=== PATIENT | male | born 1950 | race African-American/Black ===

== ENCOUNTER 2017-04-08 11:30 | Emergency (ER) | payer MEDICARE, MEDICAID ==
[~2017-04-08] VITALS: Ht 182.9 cm; Wt 75.0 kg
[~2017-04-08 11:30] MED LIST: ABAC1TAB14 PO; ABIL10 PO; ALEN70TA46 PO; CALC-816 PO; CYAN100053 IM; HYDR25TA PO; LORA10TA7 PO; METF10002 PO; MULT-1146 PO; QUIN40TA14 PO; SERT-112 PO; TAMS-11 PO; TRAM50TA3 PO
[2017-04-08 11:35] VITALS: BP 198/98
== END 2017-04-08 15:00 | disposition home or self-care (01) ==
LOC: ER 11:30
DX: M54.2 Cervicalgia (principal); M54.5 Low back pain; M79.604 Pain in right leg; J45.909 Unspecified asthma, uncomplicated; E11.9 Type 2 diabetes mellitus without complications; F17.200 Nicotine dependence, unspecified, uncomplicated; I10 Essential (primary) hypertension; F12.10 Cannabis abuse, uncomplicated; V79.9XXA Bus occupant (driver) (passenger) injured in unspecified traffic accident, initial encounter; Y93.89 Activity, other specified; Y99.8 Other external cause status; Y92.410 Unspecified street and highway as the place of occurrence of the external cause; Z88.0 Allergy status to penicillin
CPT/HCPCS: 99283

== ENCOUNTER 2018-09-24 18:15 | Emergency (ER) | payer MEDICARE, MEDICAID ==
[~2018-09-24] VITALS: Ht 185.4 cm; Wt 81.5 kg
[~2018-09-24 18:15] MED LIST changes: -ALEN70TA46 PO; +ALEN70TA68 PO; +CALC-38 PO; -CALC-816 PO; +METF-416 PO; -METF10002 PO
[2018-09-24] MEDS ORDERED: SODIUM CHLORIDE 0.9% 1,000 ML IV ONE (18:35)
[2018-09-24] MEDS ORDERED: FAMOTIDINE 20MG/2ML VIAL IV ONE (18:45)
[2018-09-24] MEDS ORDERED: METHYLPREDNISOLONE SOD SUCC 125 MG/2 ML VIAL IV ONE (18:45)
[2018-09-24] MEDS ORDERED: DIPHENHYDRAMINE 50MG/ML VIAL IV ONE (18:45)
[2018-09-24 18:54] LABS: EOSINOPHILS % 4.4 % (0.0-5.0); HEMATOCRIT. 40.6 % (42.0-52.0); HEMOGLOBIN. 14.2 g/dL (14.0-18.0); LYMPHOCYTES % 27.6 % (20.0-50.0); MEAN CORPUSCULAR HEMOGLOBIN 34.4 pg (28.0-32.0); MEAN CORPUSCULAR VOLUME 98.8 fL (80.0-94.0); MEAN PLATELET VOLUME 9.4 fl (7.4-10.4); MONOCYTES % 8.3 % (2.0-8.0); NEUTROPHILS % 58.7 % (40.0-76.0); PLATELET 153 x1000/uL (130-400); RED BLOOD CELL COUNT 4.11 mill/uL (4.7-6.1)
[2018-09-24 18:58] LABS: CHLORIDE 113 mEq/L (98-107)
[2018-09-24 19:00] LABS: INR 1.1; PROTHROMBIN TIME 10.9 sec (9.6-11.0)
[2018-09-24 21:35] VITALS: BP 169/93
== END 2018-09-24 21:38 | disposition home or self-care (01) ==
LOC: ER 18:15
DX: T78.2XXA Anaphylactic shock, unspecified, initial encounter (principal); E11.9 Type 2 diabetes mellitus without complications; I10 Essential (primary) hypertension; J45.909 Unspecified asthma, uncomplicated; Z79.899 Other long term (current) drug therapy; Z88.0 Allergy status to penicillin; Z90.49 Acquired absence of other specified parts of digestive tract; Z79.84 Long term (current) use of oral hypoglycemic drugs
CPT/HCPCS: 36415; 71045; 80053; 85025; 85610; 96374; 96375; 99284; J1200; J2930; J3490; J7030

== ENCOUNTER 2019-01-16 15:03 | Emergency (ER) | payer MEDICARE, MEDICAID ==
[~2019-01-16] VITALS: Ht 177.8 cm; Wt 80.0 kg
[2019-01-16] MEDS ORDERED: KETOROLAC 30MG/ML VIAL IV ONE (16:45)
[2019-01-16] MEDS ORDERED: MORPHINE SULFATE 4 MG/ML CPJ (NOT FOR IM USE) IV ONE (16:45)
[2019-01-16 17:03] LABS: BASOPHILS % 0.6 % (0.0-2.0); EOSINOPHILS % 0.5 % (0.0-5.0); HEMATOCRIT. 37.7 % (42.0-52.0); HEMOGLOBIN. 13.1 g/dL (14.0-18.0); LYMPHOCYTES % 12.6 % (20.0-50.0); MEAN CORPUSCULAR HEMOGLOBIN 34.1 pg (28.0-32.0); MEAN CORPUSCULAR VOLUME 98.5 fL (80.0-94.0); MEAN PLATELET VOLUME 9.2 fl (7.4-10.4); MONOCYTES % 7.2 % (2.0-8.0); NEUTROPHILS % 79.1 % (40.0-76.0); PLATELET 169 x1000/uL (130-400); RED BLOOD CELL COUNT 3.83 mill/uL (4.7-6.1); RED CELL DISTRIBUTION WIDTH 15.5 % (11.6-14.6)
[2019-01-16 17:07] VITALS: BP 139/113
== END 2019-01-16 18:42 | disposition home or self-care (01) ==
LOC: ER 15:03
DX: R07.81 Pleurodynia (principal); M25.562 Pain in left knee; M79.644 Pain in right finger(s); R05 Cough; F12.10 Cannabis abuse, uncomplicated; J45.909 Unspecified asthma, uncomplicated; E11.9 Type 2 diabetes mellitus without complications; I10 Essential (primary) hypertension; Z90.49 Acquired absence of other specified parts of digestive tract; Z88.0 Allergy status to penicillin; W18.31XA Fall on same level due to stepping on an object, initial encounter; Y93.89 Activity, other specified; Y92.89 Other specified places as the place of occurrence of the external cause; Y99.8 Other external cause status
CPT/HCPCS: 36415; 71045; 71100; 85025; 93005; 96374; 96375; 99284; J1885; J2270

== ENCOUNTER 2019-10-04 13:25 | Emergency (ER) | payer MEDICARE, MEDICAID ==
[~2019-10-04] VITALS: Ht 182.9 cm; Wt 77.0 kg
[2019-10-04] MEDS ORDERED: IBUPROFEN 600MG TABLET PO ONE (14:45)
[2019-10-04 17:14] VITALS: BP 159/97
== END 2019-10-04 17:15 | disposition home or self-care (01) ==
LOC: ER 13:25
DX: R07.89 Other chest pain (principal); J45.909 Unspecified asthma, uncomplicated; E11.9 Type 2 diabetes mellitus without complications; I10 Essential (primary) hypertension; F12.10 Cannabis abuse, uncomplicated; Z90.49 Acquired absence of other specified parts of digestive tract; Z88.0 Allergy status to penicillin; Z79.899 Other long term (current) drug therapy
CPT/HCPCS: 71045; 71110; 93005; 99284

== ENCOUNTER 2020-01-03 13:15 | Emergency (ER) | payer MEDICARE, MEDICAID ==
[~2020-01-03] VITALS: Ht 185.4 cm; Wt 81.6 kg
[2020-01-03 13:22] VITALS: BP 195/95
== END 2020-01-03 14:37 | disposition home or self-care (01) ==
LOC: ER 13:26
DX: H00.015 Hordeolum externum left lower eyelid (principal); R21 Rash and other nonspecific skin eruption; I10 Essential (primary) hypertension; B20 Human immunodeficiency virus [HIV] disease; J45.909 Unspecified asthma, uncomplicated; E11.9 Type 2 diabetes mellitus without complications; F12.10 Cannabis abuse, uncomplicated; Z90.49 Acquired absence of other specified parts of digestive tract; Z79.899 Other long term (current) drug therapy; Z88.0 Allergy status to penicillin
CPT/HCPCS: 99281; 99282

== ENCOUNTER 2020-04-14 12:31 | Emergency (ER) | payer OTHER, MEDICAID ==
[~2020-04-14] VITALS: Ht 185.4 cm; Wt 79.3 kg
[2020-04-14] MEDS ORDERED: HYDROCODONE/ACETAMINOPHEN 5/325MG TABLET PO ONE (14:45)
[2020-04-14 14:49] LABS: BASOPHILS % 0.8 % (0.0-2.0); EOSINOPHILS % 2.4 % (0.0-5.0); HEMATOCRIT. 35.5 % (42.0-52.0); HEMOGLOBIN. 11.9 g/dL (14.0-18.0); LYMPHOCYTES % 20.3 % (20.0-50.0); MEAN CORPUSCULAR HEMOGLOBIN 33.6 pg (28.0-32.0); MEAN CORPUSCULAR VOLUME 100.3 fL (80.0-94.0); MEAN PLATELET VOLUME 9.6 fl (7.4-10.4); MONOCYTES % 7.1 % (2.0-8.0); NEUTROPHILS % 69.4 % (40.0-76.0); PLATELET 168 x1000/uL (130-400); RED BLOOD CELL COUNT 3.54 mill/uL (4.7-6.1); RED CELL DISTRIBUTION WIDTH 14.4 % (11.6-14.6)
[2020-04-14 14:55] LABS: CHLORIDE 111 mEq/L (98-107)
[2020-04-14 15:02] LABS: C REACTIVE PROTEIN QUANT 8.2 mg/L (0.0-3.0)
[2020-04-14 15:04] LABS: D-DIMER 1.19 mg/L FEU (<0.50); INR 1.1; PROTHROMBIN TIME 11.4 sec (9.6-11.0)
[2020-04-14 15:05] LABS: CREATINE KINASE 229 IU/L (39-308)
[2020-04-14 15:40] VITALS: BP 120/78
[2020-04-14 15:42] LABS: CLARITY URINE CLEAR (CLEAR); COLOR URINE YELLOW (YELLOW); KETONES URINE NEGATIVE (NEGATIVE); LEUKOCYTE ESTERASE URINE NEGATIVE (NEGATIVE); NITRITE URINE NEGATIVE (NEGATIVE); OCCULT BLOOD URINE 1+ (NEGATIVE); PROTEIN URINE 3+ (NEGATIVE); SPECIFIC GRAVITY URINE 1.016 (1.005-1.030); UROBILINOGEN URINE 0.2 E.U./dL (0.2-1.0)
[2020-04-14 16:16] LABS: *AMPHETAMINES SCREEN URINE NEGATIVE (NEGATIVE); *BARBITURATES SCREEN URINE NEGATIVE (NEGATIVE); *BENZODIAZEPINES SCREEN URINE NEGATIVE (NEGATIVE)
[2020-04-14 16:17] LABS: *COCAINE SCREEN URINE NEGATIVE (NEGATIVE); CANNABINOID URINE SCREEN PRESUMTIVE POSITIVE (NEGATIVE); METHADONE URINE SCREEN NEGATIVE (NEGATIVE); OPIATES URINE SCREEN NEGATIVE (NEGATIVE); PHENCYCLIDINE URINE SCREEN NEGATIVE (NEGATIVE)
== END 2020-04-14 15:40 | disposition home or self-care (01) ==
LOC: ER 12:31 → CANBEDREQ 04-16 16:07
DX: R07.89 Other chest pain (principal); R06.02 Shortness of breath; R79.82 Elevated C-reactive protein (CRP); E46 Unspecified protein-calorie malnutrition; Z68.22 Body mass index [BMI] 22.0-22.9, adult
CPT/HCPCS: 36415; 71045; 80053; 80305; 81003; 82550; 82728; 83605; 83615; 83880; 84145; 84484; 85025; 85379; 85384; 86140; 93005; 99285

== ENCOUNTER 2021-01-16 17:32 | Emergency (ER) | payer OTHER, MEDICAID ==
[~2021-01-16] VITALS: Ht 188 cm; Wt 79.0 kg
[~2021-01-16 17:32] MED LIST changes: -ABAC1TAB14 PO; -ABIL10 PO; -ALEN70TA68 PO; +AMLO10TA80 PO; +ASPI-1497 PO; -CYAN100053 IM; -METF-416 PO; +P20 MT; -QUIN40TA14 PO
[2021-01-16] MEDS ORDERED: KETOROLAC 30MG/ML VIAL IV STA (18:20)
[2021-01-16] MEDS ORDERED: SODIUM CHLORIDE 0.9% 1,000 ML IV ONE (18:30)
[2021-01-16 18:38] LABS: BASOPHILS % 0.6 % (0.0-2.0); EOSINOPHILS % 0.6 % (0.0-5.0); HEMATOCRIT. 31.3 % (42.0-52.0); HEMOGLOBIN. 10.6 g/dL (14.0-18.0); MEAN CORPUSCULAR VOLUME 97.1 fL (80.0-94.0); MEAN PLATELET VOLUME 9.9 fl (7.4-10.4); MONOCYTES % 8.2 % (2.0-8.0); NEUTROPHILS % 76.6 % (40.0-76.0); PLATELET 161 x1000/uL (130-400); RED BLOOD CELL COUNT 3.22 mill/uL (4.7-6.1); RED CELL DISTRIBUTION WIDTH 13.8 % (11.6-14.6)
[2021-01-16 18:46] LABS: CHLORIDE 117 mEq/L (98-107)
[2021-01-16 18:50] LABS: ETHANOL BLOOD < 10 mg/dL
[2021-01-16 19:18] LABS: CLARITY URINE CLEAR (CLEAR); COLOR URINE YELLOW (YELLOW); KETONES URINE NEGATIVE (NEGATIVE); LEUKOCYTE ESTERASE URINE NEGATIVE (NEGATIVE); NITRITE URINE NEGATIVE (NEGATIVE); OCCULT BLOOD URINE 1+ (NEGATIVE); PROTEIN URINE 3+ (NEGATIVE)
[2021-01-16 19:28] LABS: *AMPHETAMINES SCREEN URINE NEGATIVE (NEGATIVE); *BARBITURATES SCREEN URINE NEGATIVE (NEGATIVE)
[2021-01-16 19:29] LABS: *BENZODIAZEPINES SCREEN URINE NEGATIVE (NEGATIVE); *COCAINE SCREEN URINE NEGATIVE (NEGATIVE); CANNABINOID URINE SCREEN PRESUMTIVE POSITIVE (NEGATIVE); METHADONE URINE SCREEN NEGATIVE (NEGATIVE); OPIATES URINE SCREEN NEGATIVE (NEGATIVE); PHENCYCLIDINE URINE SCREEN NEGATIVE (NEGATIVE)
[2021-01-16] MEDS ORDERED: MORPHINE SULFATE 4 MG/ML CPJ (NOT FOR IM USE) IV ONE (19:45)
[2021-01-16] MEDS ORDERED: ONDANSETRON HCL 4MG/2ML INJ IV ONE (19:45)
[2021-01-16] MEDS ORDERED: MORPHINE SULFATE 2 MG/ML CPJ (NOT FOR IM USE) IV NR (20:15)
[2021-01-16 22:00] VITALS: BP 159/89
[2021-01-16] MEDS ORDERED: IBUP-2028 MT (22:02)
== END 2021-01-16 22:56 | disposition home or self-care (01) ==
LOC: ER 17:32
DX: R07.89 Other chest pain (principal); N28.9 Disorder of kidney and ureter, unspecified; M54.89 Other dorsalgia; D53.9 Nutritional anemia, unspecified; I10 Essential (primary) hypertension; E11.9 Type 2 diabetes mellitus without complications; F17.210 Nicotine dependence, cigarettes, uncomplicated; Z90.49 Acquired absence of other specified parts of digestive tract; Z79.82 Long term (current) use of aspirin; Z71.6 Tobacco abuse counseling; Z88.0 Allergy status to penicillin; W01.0XXA Fall on same level from slipping, tripping and stumbling without subsequent striking against object, initial encounter; Y93.89 Activity, other specified; Y92.488 Other paved roadways as the place of occurrence of the external cause
CPT/HCPCS: 36415; 71045; 71250; 74176; 80053; 80305; 80320; 81003; 83690; 84484; 85025; 96374; 96375; 99285; 99406; J1885; J2270; J2405; J7030; G0480

== ENCOUNTER 2021-11-24 08:03 | Emergency (ER) | payer OTHER, MEDICAID ==
[~2021-11-24] VITALS: Ht 185.4 cm; Wt 70.0 kg
[~2021-11-24 08:03] MED LIST changes: +IBUP-2028 MT
[2021-11-24 08:16] VITALS: BP 142/86
[2021-11-24] MEDS ORDERED: OFLO5DRO4 RIGHT EAR (11:38)
== END 2021-11-24 11:46 | disposition home or self-care (01) ==
LOC: ER 08:14
DX: T16.1XXA Foreign body in right ear, initial encounter (principal); X58.XXXA Exposure to other specified factors, initial encounter; Y93.89 Activity, other specified; Y92.89 Other specified places as the place of occurrence of the external cause; Y99.8 Other external cause status; J45.909 Unspecified asthma, uncomplicated; E11.9 Type 2 diabetes mellitus without complications; I10 Essential (primary) hypertension; Z90.49 Acquired absence of other specified parts of digestive tract; F12.10 Cannabis abuse, uncomplicated; Z79.899 Other long term (current) drug therapy
CPT/HCPCS: 69200; 99284

== ENCOUNTER 2022-02-08 15:15 | Inpatient (IN) | payer OTHER, MEDICAID ==
[~2022-02-08] VITALS: Ht 185.4 cm; Wt 83.9 kg
[~2022-02-08 15:15] MED LIST changes: +OFLO5DRO4 RIGHT EAR
[2022-02-08] MEDS ORDERED: MORPHINE SULFATE 4 MG/ML CPJ (NOT FOR IM USE) IV STA (15:32)
[2022-02-08] MEDS ORDERED: SODIUM CHLORIDE 0.9% 1,000 ML IV ONE (15:45)
[2022-02-08 16:09] LABS: CHLORIDE 111 mEq/L (98-107)
[2022-02-08 16:11] LABS: BASOPHILS % 1.2 % (0.0-2.0); EOSINOPHILS % 10.9 % (0.0-5.0); HEMOGLOBIN. 12.7 g/dL (14.0-18.0); LYMPHOCYTES % 27.7 % (20.0-50.0); MEAN CORPUSCULAR HEMOGLOBIN 31.8 pg (28.0-32.0); MEAN CORPUSCULAR VOLUME 92.9 fL (80.0-94.0); MEAN PLATELET VOLUME 9.5 fl (7.4-10.4); MONOCYTES % 10.7 % (2.0-8.0); NEUTROPHILS % 49.5 % (40.0-76.0); PLATELET 166 x1000/uL (130-400); RED BLOOD CELL COUNT 3.98 mill/uL (4.7-6.1); RED CELL DISTRIBUTION WIDTH 14.4 % (11.6-14.6)
[2022-02-08 16:14] LABS: INR 1.1; PROTHROMBIN TIME 11.4 sec (9.6-11.0)
[2022-02-08] MEDS ORDERED: DIAZEPAM 5 MG TABLET PO ONE (18:15)
[2022-02-08 18:57] LABS: CLARITY URINE CLEAR (CLEAR); COLOR URINE YELLOW (YELLOW); KETONES URINE NEGATIVE (NEGATIVE); LEUKOCYTE ESTERASE URINE NEGATIVE (NEGATIVE); NITRITE URINE NEGATIVE (NEGATIVE); OCCULT BLOOD URINE NEGATIVE (NEGATIVE); PROTEIN URINE 1+ (NEGATIVE); SPECIFIC GRAVITY URINE 1.011 (1.005-1.030); UROBILINOGEN URINE 0.2 E.U./dL (0.2-1.0)
[2022-02-08] MEDS ORDERED: MORPHINE SULFATE 4 MG/ML CPJ (NOT FOR IM USE) IV ONE (20:00)
[2022-02-08] MEDS: LIDOCAINE 5% PATCH TOP SCH (20:15)
[2022-02-09] MEDS ORDERED: GABA-533 PO (03:26)
[2022-02-09] MEDS ORDERED: LOSA25TA26 MT (03:27)
[2022-02-09] MEDS ORDERED: LABE100T9 PO (03:28)
[2022-02-09] MEDS ORDERED: DOLU1TAB MT (03:29)
[2022-02-09] MEDS ORDERED: LYR25 PO (03:30)
[2022-02-09] MEDS ORDERED: HYDR25TA PO (03:31)
[2022-02-09] MEDS ORDERED: TRAZ-251 PO (03:32)
[2022-02-09] MEDS ORDERED: KETO15CR2 TP (03:34)
[2022-02-09] MEDS ORDERED: CLOB15CR4 TP (03:34)
[2022-02-09] MEDS ORDERED: *PATIENT'S OWN MEDICATION STORAGE XX SCH (03:45)
[2022-02-09 03:54] VITALS: BP 169/92
[2022-02-09] MEDS: LIDOCAINE 5% PATCH TOP SCH (09:00)
[2022-02-09] MEDS ORDERED: LIDOCAINE 5% PATCH TOP SCH (09:00)
[2022-02-09 09:21] VITALS: BP 143/82
[2022-02-09 12:00] VITALS: BP 117/69
[2022-02-09] MEDS ORDERED: IPRATROPIUM/ALBUTEROL 0.5-3(2.5)MG/3ML NEB HHN PRN (12:15)
[2022-02-09] MEDS ORDERED: ACETAMINOPHEN 325MG TABLET PO PRN (12:15)
[2022-02-09] MEDS ORDERED: IBUPROFEN 800MG TABLET PO SCH (12:15)
[2022-02-09] MEDS ORDERED: ONDANSETRON HCL 4MG/2ML INJ IV PRN (12:15)
[2022-02-09] MEDS ORDERED: HYDROCODONE/ACETAMINOPHEN 5/325MG TABLET PO SCH (12:15)
[2022-02-09] MEDS ORDERED: GUAIFENESIN 200MG/10ML SUGAR FREE UDC PO PRN (12:15)
[2022-02-09] MEDS ORDERED: CLONIDINE 0.1MG TABLET PO PRN (12:15)
[2022-02-09] MEDS: HYDROCODONE/ACETAMINOPHEN 5/325MG TABLET PO SCH ×2 (13:52→22:09)
[2022-02-09] MEDS ORDERED: DEXTROSE 50% WATER 50ML SYRINGE IV PRN (14:30)
[2022-02-09] MEDS: SODIUM CHLORIDE 0.45% 1,000 ML IV SCH (14:44)
[2022-02-09 16:00] VITALS: BP 130/62
[2022-02-09] MEDS: INSULIN LISPRO 100 UNITS/ML SUBCUT SCH ×2 (17:50→21:00)
[2022-02-09] MEDS: BLOOD SUGAR DIAGNOSTIC STRIP TEST SCH ×2 (17:52→21:00)
[2022-02-09] MEDS ORDERED: NALOXONE HCL 0.4MG/ML VIAL IV PRN (19:15)
[2022-02-09 20:00] VITALS: BP 108/48
[2022-02-09 21:20] LABS: BASOPHILS % 1.7 % (0.0-2.0); EOSINOPHILS % 12.2 % (0.0-5.0); HEMATOCRIT. 36.6 % (42.0-52.0); HEMOGLOBIN. 12.6 g/dL (14.0-18.0); LYMPHOCYTES % 31.2 % (20.0-50.0); MEAN CORPUSCULAR VOLUME 92.8 fL (80.0-94.0); MEAN PLATELET VOLUME 9.9 fl (7.4-10.4); MONOCYTES % 8.4 % (2.0-8.0); NEUTROPHILS % 46.5 % (40.0-76.0); PLATELET 171 x1000/uL (130-400); RED BLOOD CELL COUNT 3.94 mill/uL (4.7-6.1); RED CELL DISTRIBUTION WIDTH 14.2 % (11.6-14.6)
[2022-02-09] MEDS: IBUPROFEN 800MG TABLET PO SCH (22:09)
[2022-02-09 23:21] LABS: CREATINE KINASE 495 IU/L (39-308)
[2022-02-10] VITALS: BP 131/69
[2022-02-10] MEDS: SODIUM CHLORIDE 0.45% 1,000 ML IV SCH (02:20)
[2022-02-10 04:00] VITALS: BP 117/69
[2022-02-10 07:05] LABS: BASOPHILS % 1.3 % (0.0-2.0); EOSINOPHILS % 10.5 % (0.0-5.0); HEMATOCRIT. 36.2 % (42.0-52.0); HEMOGLOBIN. 12.2 g/dL (14.0-18.0); LYMPHOCYTES % 33.9 % (20.0-50.0); MEAN CORPUSCULAR HEMOGLOBIN 31.4 pg (28.0-32.0); MEAN CORPUSCULAR VOLUME 93.1 fL (80.0-94.0); MEAN PLATELET VOLUME 9.4 fl (7.4-10.4); MONOCYTES % 11.4 % (2.0-8.0); NEUTROPHILS % 42.9 % (40.0-76.0); PLATELET 162 x1000/uL (130-400); RED BLOOD CELL COUNT 3.89 mill/uL (4.7-6.1); RED CELL DISTRIBUTION WIDTH 14.2 % (11.6-14.6)
[2022-02-10] MEDS: BLOOD SUGAR DIAGNOSTIC STRIP TEST SCH ×2 (07:10→12:29)
[2022-02-10] MEDS: HYDROCODONE/ACETAMINOPHEN 5/325MG TABLET PO SCH (07:11)
[2022-02-10] MEDS: INSULIN LISPRO 100 UNITS/ML SUBCUT SCH (07:12)
[2022-02-10 08:05] VITALS: BP 143/83
[2022-02-10] MEDS: IBUPROFEN 800MG TABLET PO SCH (08:49)
[2022-02-10 09:16] LABS: PHOSPHORUS 3.5 mg/dL (2.5-4.9); T4 FREE 0.86 ng/dL (0.76-1.46)
[2022-02-10] MEDS ORDERED: LOSARTAN POTASSIUM 25 MG TABLET PO SCH (11:00)
[2022-02-10 11:49] VITALS: BP 139/78
[2022-02-10] MEDS ORDERED: INSULIN LISPRO 100 UNITS/ML SUBCUT SCH (12:50)
[2022-02-10 13:16] LABS: *AMPHETAMINES SCREEN URINE NEGATIVE (NEGATIVE); *BARBITURATES SCREEN URINE NEGATIVE (NEGATIVE); *BENZODIAZEPINES SCREEN URINE NEGATIVE (NEGATIVE); *COCAINE SCREEN URINE NEGATIVE (NEGATIVE); CANNABINOID URINE SCREEN PRESUMTIVE POSITIVE (NEGATIVE); METHADONE URINE SCREEN NEGATIVE (NEGATIVE); OPIATES URINE SCREEN PRESUMTIVE POSITIVE (NEGATIVE); PHENCYCLIDINE URINE SCREEN NEGATIVE (NEGATIVE)
[2022-02-10] MEDS ORDERED: GABAPENTIN 100MG CAPSULE PO SCH ×3 (14:00→17:00)
[2022-02-10] MEDS ORDERED: HYDR-4001 MT (16:01)
[2022-02-10 16:10] VITALS: BP 132/74
[2022-02-10] MEDS ORDERED: HYDROCODONE/ACETAMINOPHEN 5/325MG TABLET PO PRN (16:15)
[2022-02-10] MEDS ORDERED: TRAMADOL 50MG TABLET PO SCH (16:15)
[2022-02-10 17:00] VITALS: BP 101/53
[2022-02-10] MEDS ORDERED: PREDNISONE 20MG TABLET PO SCH (17:00)
[2022-02-10] MEDS ORDERED: IBUPROFEN 400MG TABLET PO PRN (17:00)
[2022-02-10] MEDS ORDERED: TRAMADOL 50MG TABLET PO PRN (19:15)
[2022-02-11] MEDS ORDERED: AMLODIPINE 10MG TABLET PO SCH (09:00)
[2022-02-11] MEDS ORDERED: LORATADINE 10MG TABLET PO SCH (09:00)
[2022-02-11] MEDS ORDERED: SERTRALINE HCL 100MG TABLET PO SCH (09:00)
[2022-02-11] MEDS ORDERED: HYDROCHLOROTHIAZIDE 25MG TABLET PO SCH (09:00)
[2022-02-11] MEDS ORDERED: TRAZODONE HCL 50MG TABLET PO SCH (09:00)
[2022-02-11] MEDS ORDERED: ASPIRIN 81MG EC TABLET PO SCH (09:00)
[2022-02-11] MEDS ORDERED: PREGABALIN 25MG CAPSULE PO SCH (09:00)
[2022-02-11] MEDS ORDERED: LOSARTAN POTASSIUM 25 MG TABLET PO SCH (09:00)
[2022-02-11] MEDS ORDERED: TAMSULOSIN HCL 0.4MG SR CAPSULE PO SCH (09:00)
== END 2022-02-10 17:10 | disposition home or self-care (01) | DRG 555 ==
LOC: ER 15:24 → EDBEDREQ 20:09 → 6EST 21:04 → EDBEDREQ 21:09 → ENRESERV 22:56
PROVIDERS: ADMIT Internal Medicine; ATTEND Internal Medicine
DX: M62.838 Other muscle spasm (principal); N17.0 Acute kidney failure with tubular necrosis; N18.4 Chronic kidney disease, stage 4 (severe); E11.22 Type 2 diabetes mellitus with diabetic chronic kidney disease; I12.9 Hypertensive chronic kidney disease with stage 1 through stage 4 chronic kidney disease, or unspecified chronic kidney disease; N28.1 Cyst of kidney, acquired; J45.909 Unspecified asthma, uncomplicated; F17.210 Nicotine dependence, cigarettes, uncomplicated; D64.9 Anemia, unspecified; M79.672 Pain in left foot; M79.671 Pain in right foot; K57.90 Diverticulosis of intestine, part unspecified, without perforation or abscess without bleeding; Z88.0 Allergy status to penicillin; Z90.49 Acquired absence of other specified parts of digestive tract; Z79.4 Long term (current) use of insulin; Z21 Asymptomatic human immunodeficiency virus [HIV] infection status
CPT/HCPCS: 36415; 71045; 74176; 76700; 80048; 80053; 80305; 81003; 82550; 82570; 82962; 83036; 83605; 83735; 84100; 84300; 84439; 84443; 84484; 85025; 93005; 97162; 99285; J2270; J7030

== ENCOUNTER 2022-09-10 09:32 | Inpatient (IN) | payer OTHER, MEDICAID ==
[~2022-09-10] VITALS: Ht 185.4 cm; Wt 74.8 kg
[~2022-09-10 09:32] MED LIST changes: +CLOB15CR4 TP; +DOLU1TAB MT; +GABA-533 PO; +HYDR-4001 MT; +KETO15CR2 TP; +LABE100T9 PO; +LOSA25TA26 MT; +LYR25 PO; +TRAZ-251 PO
[2022-09-10 10:20] LABS: BASOPHILS % 0.9 % (0.0-2.0); EOSINOPHILS % 1.6 % (0.0-5.0); HEMATOCRIT. 35.2 % (42.0-52.0); HEMOGLOBIN. 12.1 g/dL (14.0-18.0); LYMPHOCYTES % 19.8 % (20.0-50.0); MEAN CORPUSCULAR HEMOGLOBIN 31.3 pg (28.0-32.0); MEAN CORPUSCULAR VOLUME 91.1 fL (80.0-94.0); MEAN PLATELET VOLUME 9.2 fl (7.4-10.4); MONOCYTES % 9.1 % (2.0-8.0); NEUTROPHILS % 68.6 % (40.0-76.0); PLATELET 264 x1000/uL (130-400); RED BLOOD CELL COUNT 3.87 mill/uL (4.7-6.1); RED CELL DISTRIBUTION WIDTH 13.9 % (11.6-14.6)
[2022-09-10 10:26] LABS: CHLORIDE 107 mEq/L (98-107)
[2022-09-10 10:27] LABS: INR 1.1; PROTHROMBIN TIME 12.1 sec (9.6-11.0)
[2022-09-10 12:23] LABS: CLARITY URINE CLEAR (CLEAR); COLOR URINE YELLOW (YELLOW); KETONES URINE NEGATIVE (NEGATIVE); LEUKOCYTE ESTERASE URINE NEGATIVE (NEGATIVE); NITRITE URINE NEGATIVE (NEGATIVE); OCCULT BLOOD URINE NEGATIVE (NEGATIVE); PROTEIN URINE 2+ (NEGATIVE); SPECIFIC GRAVITY URINE 1.014 (1.005-1.030)
[2022-09-10] MEDS ORDERED: MORPHINE SULFATE 4 MG/ML CPJ (NOT FOR IM USE) IV ONE (12:45)
[2022-09-10] MEDS ORDERED: ONDANSETRON HCL 4MG/2ML INJ IV ONE (12:45)
[2022-09-10 20:00] VITALS: BP 144/81
[2022-09-11] VITALS (7 sets, daily range): BP systolic 125–149; BP diastolic 67–88
[2022-09-11] MEDS ORDERED: *PATIENT'S OWN MEDICATION STORAGE XX SCH (01:00)
[2022-09-11] MEDS: GABAPENTIN 300MG CAPSULE PO SCH ×4 (02:58→21:27)
[2022-09-11] MEDS: HYDROCODONE/ACETAMINOPHEN 5/325MG TABLET PO PRN ×3 (02:59→21:38)
[2022-09-11 06:55] LABS: BASOPHILS % 0.8 % (0.0-2.0); HEMATOCRIT. 33.5 % (42.0-52.0); HEMOGLOBIN. 11.4 g/dL (14.0-18.0); MEAN CORPUSCULAR HEMOGLOBIN 30.9 pg (28.0-32.0); MEAN CORPUSCULAR VOLUME 90.3 fL (80.0-94.0); MEAN PLATELET VOLUME 9.1 fl (7.4-10.4); MONOCYTES % 11.9 % (2.0-8.0); NEUTROPHILS % 57.3 % (40.0-76.0); PLATELET 274 x1000/uL (130-400); RED BLOOD CELL COUNT 3.71 mill/uL (4.7-6.1); RED CELL DISTRIBUTION WIDTH 13.8 % (11.6-14.6)
[2022-09-11] MEDS ORDERED: NALOXONE HCL 0.4MG/ML VIAL IV PRN (07:15)
[2022-09-11] MEDS: TAMSULOSIN HCL 0.4MG SR CAPSULE PO SCH (09:40)
[2022-09-11] MEDS: AMLODIPINE 10MG TABLET PO SCH (09:41)
[2022-09-11] MEDS: ASPIRIN 81MG TABLET PO SCH (09:41)
[2022-09-11] MEDS: LOSARTAN POTASSIUM 25 MG TABLET PO SCH (09:41)
[2022-09-11] MEDS: JULUCA PO SCH (21:31)
[2022-09-12] VITALS (7 sets, daily range): BP systolic 105–136; BP diastolic 61–83
[2022-09-12] MEDS: GABAPENTIN 300MG CAPSULE PO SCH ×3 (05:23→21:17)
[2022-09-12] MEDS: AMLODIPINE 10MG TABLET PO SCH (08:40)
[2022-09-12] MEDS: TAMSULOSIN HCL 0.4MG SR CAPSULE PO SCH (08:41)
[2022-09-12] MEDS: ASPIRIN 81MG TABLET PO SCH (08:41)
[2022-09-12] MEDS: LOSARTAN POTASSIUM 25 MG TABLET PO SCH (08:42)
[2022-09-12] MEDS: JULUCA PO SCH (16:56)
[2022-09-12] MEDS: HYDROCODONE/ACETAMINOPHEN 5/325MG TABLET PO PRN ×2 (17:00→21:18)
[2022-09-13] VITALS: BP 133/76
[2022-09-13 04:00] VITALS: BP_SYST 122; BP_SYST 139; BP_DIAS 74; BP_DIAS 80
[2022-09-13] MEDS: GABAPENTIN 300MG CAPSULE PO SCH (05:10)
[2022-09-13] MEDS: HYDROCODONE/ACETAMINOPHEN 5/325MG TABLET PO PRN (05:10)
[2022-09-13 08:00] VITALS: BP 139/79
[2022-09-13 09:07] LABS: % CD 3 POS. LYMPHOCYTES 84.5 % (57.5-86.2); % CD 4 POS. LYMPHOCYTES 38.2 % (30.8-58.5); % CD 8 POS. LYMPH 46.3 % (12.0-35.5); ABSOLUTE BASOPHILS 0.1 x10E3/uL (0.0-0.2); ABSOLUTE CD 3 1521 /uL (622-2402); ABSOLUTE CD 4 HELPER 688 /uL (359-1519); ABSOLUTE CD 8 SUPPRESSOR 833 /uL (109-897); ABSOLUTE EOSINOPHILS 0.2 x10E3/uL (0.0-0.4); ABSOLUTE LYMPHOCYTES 1.8 x10E3/uL (0.7-3.1); ABSOLUTE MONOCYTES 0.5 x10E3/uL (0.1-0.9); ABSOLUTE NEUTROPHILS 3.7 x10E3/uL (1.4-7.0); BASOPHILS 1 % (Not Estab.); CD4/CD8 RATIO 0.83 (0.92-3.72); HEMATOCRIT 34.6 % (37.5-51.0); HEMOGLOBIN 11.5 g/dL (13.0-17.7); IMMATURE GRANULOCYTES 1 % (Not Estab.); IMMATURE GRANULOCYTES ABSOLUTE 0.1 x10E3/uL (0.0-0.1); LYMPHOCYTES 29 % (Not Estab.); MEAN CORPUSCULAR HEMOGLOBIN 30.3 pg (26.6-33.0); MEAN CORPUSCULAR HGB CONC. 33.2 g/dL (31.5-35.7); MEAN CORPUSCULAR VOLUME 91 fL (79-97); MONOCYTES 8 % (Not Estab.); NEUTROPHILS 59 % (Not Estab.); PLATELETS 262 x10E3/uL (150-450); RBC 3.79 x10E6/uL (4.14-5.80); RED CELL DISTRIBUTION WIDTH 12.9 % (11.6-15.4); WBC 6.3 x10E3/uL (3.4-10.8)
== END 2022-09-13 08:30 | disposition home or self-care (01) | DRG 552 ==
LOC: ER 09:32 → 6EST 15:02 → EDBEDREQ 15:11
PROVIDERS: ADMIT Internal Medicine; ATTEND Internal Medicine
DX: M48.061 Spinal stenosis, lumbar region without neurogenic claudication (principal); E44.0 Moderate protein-calorie malnutrition; N17.9 Acute kidney failure, unspecified; N18.4 Chronic kidney disease, stage 4 (severe); Z68.21 Body mass index [BMI] 21.0-21.9, adult; E11.22 Type 2 diabetes mellitus with diabetic chronic kidney disease; I12.9 Hypertensive chronic kidney disease with stage 1 through stage 4 chronic kidney disease, or unspecified chronic kidney disease; J45.909 Unspecified asthma, uncomplicated; F12.90 Cannabis use, unspecified, uncomplicated; D63.1 Anemia in chronic kidney disease
CPT/HCPCS: 36415; 71045; 72148; 74176; 80048; 80053; 80061; 81003; 83036; 83880; 84484; 85025; 86359; 86360; 93005; 93306; 97110; 97162; 99285; J2270; J2405